=== PATIENT | female | born 1960 | race Caucasian/White ===

== ENCOUNTER 2023-02-16 08:09 | Day surgery (SDC) | payer OTHER ==
[~2023-02-16] VITALS: Ht 167.6 cm; Wt 80.0 kg
[~2023-02-16 08:09] MED LIST: SERT100; TRAZ50
[2023-02-16] MEDS ORDERED: BUPR75 (08:52)
[2023-02-16] MEDS ORDERED: EUTHYROX100 MCG (08:52)
[2023-02-16 09:50] VITALS: BP 127/69
== END 2023-02-16 10:00 | disposition home or self-care (01) ==
LOC: ORSCSDS 08:09
PROVIDERS: Internal Medicine Gastroenterology
PROC: 0DJD8ZZ Inspection of Lower Intestinal Tract, Via Natural or Artificial Opening Endoscopic (ICD-10-PCS; principal; 2023-02-16 09:30)
DX: Z12.11 Encounter for screening for malignant neoplasm of colon (principal); Z68.34 Body mass index [BMI] 34.0-34.9, adult; Z79.899 Other long term (current) drug therapy
CPT/HCPCS: J2704; J7120